=== PATIENT | male | born 1965 | race African-American/Black ===

== ENCOUNTER 2021-08-12 13:55 | Emergency (ER) | payer MEDICAID ==
[~2021-08-12] VITALS: Ht 182.9 cm; Wt 78.0 kg
[2021-08-12 14:49] VITALS: BP 123/78
[2021-08-12] MEDS ORDERED: DOXYCYCLINE HYCLATE 100MG CAPSULE PO ONE (15:00)
[2021-08-12] MEDS ORDERED: CEFTRIAXONE SODIUM 500 MG/VIAL IM ONE (15:00)
[2021-08-12] MEDS ORDERED: DOXY-326 MT (15:17)
[2021-08-12] MEDS ORDERED: POLY17PO3 MT (15:17)
[2021-08-12] MEDS ORDERED: IBUP-2029 MT (15:17)
[2021-08-12] MEDS ORDERED: IBUPROFEN 800MG TABLET PO ONE (15:30)
[2021-08-12 17:52] LABS: CLARITY URINE TURBID (CLEAR); COLOR URINE YELLOW (YELLOW); KETONES URINE NEGATIVE (NEGATIVE); LEUKOCYTE ESTERASE URINE 3+ (NEGATIVE); NITRITE URINE POSITIVE (NEGATIVE); OCCULT BLOOD URINE 3+ (NEGATIVE); PROTEIN URINE 3+ (NEGATIVE); SPECIFIC GRAVITY URINE 1.018 (1.005-1.030)
[2021-08-16 07:08] LABS: NEISSERIA GONORRHOEAE NAA Negative (Negative)
== END 2021-08-12 17:51 | disposition home or self-care (01) ==
LOC: ER 13:55
DX: K59.00 Constipation, unspecified (principal)
CPT/HCPCS: 81003; 87086; 87491; 87591; 96372; 99283; J0696